=== PATIENT | male | born 1990 | race Caucasian/White ===

== ENCOUNTER 2018-01-14 01:58 | Emergency (ER) | payer OTHER ==
[2018-01-14] MEDS: CEFTRIAXONE 1 GM/50 ML (PMX) 50 ML IVPB (02:35)
[2018-01-14] MEDS: HYDROmorphONE 0.5 MG/0.5 ML SYG IV ×2 (02:35→03:47)
[2018-01-14] MEDS: SOD CHLORIDE 0.9% 1,000 ML IV (02:35)
[2018-01-14] MEDS: ONDANSETRON 4 MG INJ IV ×2 (02:35→03:47)
[2018-01-14] MEDS: SOD CHLORIDE 0.9% 100 ML (02:47)
[2018-01-14] MEDS: IOHEXOL 300MG/ML 150 ML BTL (02:47)
[2018-01-14 02:59] LABS: ADD MAN DIFF? NO
[2018-01-14 03:01] LABS: BASOPHILS % 0.3 % (0.0-2.0); EOSINOPHILS # 0.3 10^3/ul (0.0-0.5); EOSINOPHILS % 3.3 % (0.0-7.0); HEMATOCRIT 43.6 % (42.0-52.0); HEMOGLOBIN 14.2 g/dl (14.0-18.0); LYMPHOCYTES # 3.4 10^3/ul (0.8-2.9); LYMPHOCYTES % 35.1 % (15.0-51.0); MEAN CORPUSCULAR HEMOGLOBIN 28.6 pg (29.0-33.0); MEAN CORPUSCULAR HGB CONC 32.6 g/dl (32.0-37.0); MEAN CORPUSCULAR VOLUME 87.9 fl (82.0-101.0); MEAN PLATELET VOLUME 11.1 fl (7.4-10.4); MONOCYTE # 0.7 10^3/ul (0.3-0.9); MONOCYTES % 7.5 % (0.0-11.0); NEUTROPHIL # 5.1 10^3/ul (1.6-7.5); NEUTROPHILS % 53.3 % (39.0-77.0); PLATELET COUNT 239 10^3/UL (140-415); RED BLOOD COUNT 4.96 10^6/ul (4.70-6.10); RED CELL DISTRIBUTION WIDTH 13.1 % (11.5-14.5)
[2018-01-14 03:01] LABS: WHITE BLOOD COUNT 9.6 10^3/ul (4.8-10.8)
[2018-01-14 03:21] LABS: ANION GAP 17 (8-16); BLOOD UREA NITROGEN 19 mg/dl (7-20); CALCIUM 9.5 mg/dl (8.4-10.2); CARBON DIOXIDE 30 mmol/L (21-31); CHLORIDE 102 mmol/L (97-110); CREATININE 1.05 mg/dl (0.61-1.24); GLUCOSE 185 mg/dl (70-220); POTASSIUM 3.5 mmol/L (3.5-5.1); PROTIME 13.3 Sec (11.9-14.9); SODIUM 145 mmol/L (135-144)
[2018-01-14 03:22] LABS: PARTIAL THROMBOPLASTIN TIME 29.2 Sec (25.0-35.0)
== END 2018-01-14 05:15 | disposition home or self-care (01) ==
LOC: E/R 01:58
DX: S71.102A Unspecified open wound, left thigh, initial encounter (principal); W34.00XA Accidental discharge from unspecified firearms or gun, initial encounter; Y92.9 Unspecified place or not applicable; Z79.01 Long term (current) use of anticoagulants
CPT/HCPCS: 73550; 73590; 73706; 80048; 85025; 85610; 85730; 96374; 96375; 96376; 99285-25

== ENCOUNTER 2018-12-24 13:07 | Emergency (ER) | payer OTHER ==
[2018-12-24] MEDS: ALBUTEROL 0.083% (NEB) 2.5 MG/3 ML AMP NEB (14:09)
[2018-12-24] MEDS: HYDROCODONE/APAP (10/325) TAB PO (14:52)
== END 2018-12-24 15:39 | disposition home or self-care (01) ==
LOC: E/R 13:07
DX: J40 Bronchitis, not specified as acute or chronic (principal); R40.2142 Coma scale, eyes open, spontaneous, at arrival to emergency department; R40.2362 Coma scale, best motor response, obeys commands, at arrival to emergency department; R40.2252 Coma scale, best verbal response, oriented, at arrival to emergency department; R07.89 Other chest pain; Z87.891 Personal history of nicotine dependence
CPT/HCPCS: 71045; 93005; 94664; 99284-25